=== PATIENT | male | born 1955 | race Caucasian/White ===

== ENCOUNTER 2020-02-26 04:00 | Emergency (ER) | payer MEDICARE ==
[2020-02-26] MEDS ORDERED: methylPREDNISolone ACETATE 80 MG/ML VIAL IM ONE (04:06)
[2020-02-26] MEDS ORDERED: HYDROmorphone HCL INJ 2 MG/ML VIAL IM ONE (04:10)
--- NOTE | 2020-02-26 04:10 | ED.PDOC ---
History of Present Illness - General Chief Complaint: General Stated Complaint: left hand pain, possible gout Time Seen by Provider: 02/26/20 04:06 Source: patient Exam Limitations: no limitations - History of Present Illness Initial Comments: R THUMB/WRIST GOUT FLARE. SIMILAR TO PREVIOUS IN WRIST AND GREAT TOE. STARTED JUST TONIGHT CHILD MONITOR. REALLY HURTS. Timing/Duration: 1 hour Severity: severe Improving Factors: nothing Worsening Factors: movement - AND LIGHT TOUCH. Associated Symptoms: denies symptoms Home Medications: Ambulatory Orders Methylprednisolone [Medrol Dose Kyle] 4 mg PO DAILY #1 tab 02/26/20 Review of Systems - Review of Systems Constitutional: States: no symptoms reported EENTM: States: no symptoms reported Respiratory: States: no symptoms reported Cardiology: States: no symptoms reported Gastrointestinal/Abdominal: States: no symptoms reported Genitourinary: States: no symptoms reported Musculoskeletal: States: see HPI, gout, joint pain Skin: States: no symptoms reported Neurological: States: no symptoms reported Endocrine: States: no symptoms reported Hematologic/Lymphatic: States: no symptoms reported All other Systems: Reviewed and Negative Physical Exam - Physical Exam General Appearance: Alert, Other - UNCOMFORTABLE Eye Exam: bilateral normal Ears, Nose, Throat: hearing grossly normal, normal ENT inspection Neck: non-tender, full range of motion Respiratory: chest non-tender, lungs clear Cardiovascular/Chest: normal peripheral pulses, regular rate, rhythm Peripheral Pulses: radial,right: 2+ Gastrointestinal/Abdominal: normal bowel sounds, soft Back Exam: normal inspection Extremity: other - R THUMB MCP JOINT AND WRIST TTP AND EVEN TO LIGHT TOUCH, C/W GOUT. 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 PT STATES SIMILAR TO HIS PREVIOUS. STEROIDS. CAME ON TONIGHT AND VERY SEVERE INCLUDING TO LIGHT TOUCH THUS GAVE DILAUDID FOR ACUTE COMFORT UNTIL STEROIDS HELP. SAFE FOR DC TO HOME. 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 Copy, Patient Portal Self Enrollment Instructions: Gout (DC) Diet: other - INCREASE INTAKE OF CHERRIES. Activity: increase activity as tolerated Prescriptions: Methylprednisolone [Medrol Dose Kyle] 4 mg PO DAILY #1 tab Home Medications: Ambulatory Orders Methylprednisolone [Medrol Dose Kyle] 4 mg PO DAILY #1 tab 02/26/20
[2020-02-26] MEDS ORDERED: HYDROmorphone HCL INJ 2 MG/ML VIAL ONE (04:12)
[2020-02-26 04:20] VITALS: TEMP 99.9
[2020-02-26 04:31] VITALS: BP 124/88; O2SAT 97
== END 2020-02-26 04:30 | disposition home or self-care (01) ==
LOC: ER 04:00
DX: M10.031 Idiopathic gout, right wrist (principal)
CPT/HCPCS: J1030; J1170